=== PATIENT | female | born 2005 | race American Indian/Alaskan Native ===

== ENCOUNTER 2024-08-12 11:24 | Emergency (ER) | payer OTHER, SELFPAY ==
[2024-08-12 11:25] VITALS: BMI 19.3
[2024-08-12 12:18] VITALS: BP 109/70; PULSE 66; RESP 19; TEMP 36.9; O2SAT 99; BMI 19.8
--- NOTE | 2024-08-12 12:24 | EDNOTE_ITS ---
<Statement entered by Sheyla Gary MD - 08/13/24 07:39> As co-signing physician, I was present and available for consult prn. I concur with the plan and care as documented by the midlevel provider. Upper Extremity Injury RME/HPI General Chief Complaint: Hand/Wrist Problems Stated Complaint: DROPPED WEIGHT ON RIGHT MIDDLE FINGER Time Seen by Provider: 08/12/24 12:02 Source: patient Arrival date/time: 08/12/24 11:24 This is a 18-year-old female who presents to the emergency department with complaints of third digit pain of right hand. She does report she was at the gym and accidentally dropped a 40 pound weight on her fingers. Patient did not attempt any interventions or take any OTC medications prior to ED visit. Patient denies any other associated symptoms or aggravating factors. No modifying factors, no radiation, no migration. Mode of arrival: ambulatory Related Data Home Medications ?Medication ?Instructions ?Recorded ?Confirmed norethindrone 1 mg-ethinyl 1 tab PO QDAY 09/08/22 03/0 12/26 estradiol 20 mcg (24)-iron 75 mg (4) tablet () Allergies Allergy/AdvReac Type Severity Reaction Status Date / Time amoxicillin Allergy Intermediate Rash Verified 08/12/24 11:25 Review of Systems Review of Systems Systems Reviewed: All systems reviewed, normal except as documented Narrative Review of Systems: Gen: No fever, no chills, no weight loss EYES: No discharge, no visual changes, no pain HEENT: No ear pain, no congestion, no sore throat PULM: No shortness of breath, no cough, no congestion CV: No chest pain, no dyspnea on exertion, no palpitations GI: No nausea, no vomiting, no diarrhea, no pain, no constipation : No frequency, no urgency,? no dysuria Musc/skel: Finger pain pain, no back pain Skin: No rash? ED Exam Narrative Physical exam: General: Sittiing in Exam table in no acute distress, answering questions appropriately HENT: normocephalic, atraumatic, EOMI, PERRLA, moist mucous membranes Chest: chest wall is nontender Cardiac: regular rate and rhythm, normal S1 and S2, no murmurs, rubs, or gallops, capillary refill ?2 seconds Pulmonary: clear to auscultation bilaterally, no wheezing, crackles, or rhonchi Abdominal: active bowel sounds, soft, nontender, nondistended Neuro: A&OX3, CN II-XII intact, sensation grossly intact bilaterally in UE and LE. Skin: no rashes, no ecchymosis Ext: + Third digit mid phalanx ecchymosis and swelling. Passive range of motion pain CMS intact Course Quality Measures none Orders Category Date Time Status XR finger RT min 2V Stat Exams 08/12/24 12:23 Completed Ibuprofen Tab [Motrin Tab] Med 08/12/24 12:23 Discontinued 600 mg PO X1 ONE Vital Signs Vital signs: Vital Signs Temperature 98.4 F 08/12/24 12:18 Pulse Rate 66 08/12/24 12:18 Respiratory Rate 19 08/12/24 12:18 Blood Pressure 109/70 08/12/24 12:18 Pulse Oximetry (%) 99 08/12/24 12:18 Oxygen Delivery Method Room Air 08/12/24 12:18 Extremity Injury MDM Narrative MDM Narrative:: [id number]-[age]-year-old healthy female presents to the emergency department with appears a contusion of her distal third digit right hand. X-ray obtained negative for acute fracture. Finger splint applied for protection. RICE therapy recommended. NSAID for pain Follow-up with her PCP or clinic. Patient data External records reviewed:: [facility] previous records Clinical information provided by:: patient Social determinants that could affect healthcare access:: none Patient has the following chronic illnesses:: no How is presenting disease/condition affected by chronic disease/condition?: no chronic disease Evaluation data The following diagnostics were reviewed and interpreted by me:: radiology exam(s) Lab and/or radiology exams considered but not ordered:: no Interpretation Summary: Examination: Fingers, right hand third digit 3 views Technique: AP, oblique, lateral views right hand third digit. Exam date and time: August 12, 2024 1237 hours INDICATIONS: Injury to the hand today with third digit pain. FINDINGS: No acute fracture No dislocation No foreign body IMPRESSION: No acute fracture Medications / Prescriptions Medications or Prescriptions considered but not ordered:: no Medication administrations:: Medication Administration History Discontinued Medications Ibuprofen (Ibuprofen Tab 600 Mg Tablet) 600 mg PO X1 ONE Stop: 08/12/24 12:24 Last Admin: 08/12/24 13:15 Dose: 600 mg Documented By: DB All medications administered and effective Consultations Consultation(s) initiated? (list below): No Diagnosis Upper Extremity Injury Differential Diagnosis: sprain and strain of wrist, fracture of wrist, finger sprain and dislocation of finger Most likely diagnosis given after review of the tests above:: Finger contusion. Admission Indicated Admission indicated?: not indicated Admission Request Was there a request for admission?: No Disposition Plan Disposition Plan: Discharge Discharge Attestation Discharge Attestation: The patient and all family members were given an opportunity to ask questions and understood the discharge instructions. Discharge instructions specifically effects, indications for sooner follow up or return to the emergency department, and the expected course of current diagnosis. Patient condition: Stable Discharge Plan Plan Patient Disposition: HOME (Self Care) Patient condition on transfer: Stable Prescriptions/Referrals Prescriptions/Med Rec: No Action 1 mg-20 mcg (24)/75 mg (4) Tablet 1 tab PO QDAY Referrals: Vince(Yenyn)Emma PA-C [Primary Care Provider] - In 1 week Problem List Clinical Impression: Contusion of finger Patient/Caregiver Discharge Instructions Discharge Activity: activity as tolerated Education Materials: ED Finger Contusion Additional Instructions: - Is no fractures noted on the x-ray. This is basically a finger contusion. Can apply ice 15 minutes at a time 3 times a day. Tylenol or ibuprofen for pain. Follow-up with your primary doctor Print Language: Syriac Stand Alone Forms: Reena Award Info., Patient Portal Info Letter JULY/PERRY Supervising Physician BRADY Supervising Physician: Dr. Rosales
[2024-08-12] MEDS: IBUPROFEN TAB 600 MG TABLET PO (13:15)
== END 2024-08-12 13:21 | disposition home or self-care (01) ==
PROVIDERS: Emergency Provider Emergency Medicine; PCP Nurse Practitioner Family
DX: S60.031A Contusion of right middle finger without damage to nail, initial encounter (principal); W20.8XXA Other cause of strike by thrown, projected or falling object, initial encounter; Y92.39 Other specified sports and athletic area as the place of occurrence of the external cause
CPT/HCPCS: 73140; 99283; A9270